=== PATIENT | female | born 1985 | race African-American/Black ===

== ENCOUNTER 2017-08-17 20:00 | Emergency (ER) | payer MEDICARE, OTHER ==
[~2017-08-17] VITALS: Ht 165.1 cm; Wt 59.0 kg
[~2017-08-17 20:00] MED LIST: ARIP10TA15 PO
[2017-08-17 20:43] VITALS: BP 122/76
[2017-08-17 21:06] LABS: APPEARANCE,URINE CLEAR (CLEAR); BILIRUBIN,URINE NEGATIVE (NEGATIVE); BLOOD, URINE NEGATIVE Ery/uL (NEGATIVE); COLOR,URINE YELLOW (YELLOW); KETONES,URINE NEGATIVE (NEGATIVE); LEUKOCYTE ESTERASE ,URINE NEGATIVE (NEGATIVE); NITRITE, URINE NEGATIVE (NEGATIVE); PROTEIN,URINE 2+ mg/dl (NEGATIVE); UGLUCOSE NEGATIVE (NEGATIVE); UROBILINOGEN,URINE 0.2 EU/dL (0.2)
[2017-08-17 21:21] LABS: BACTERIA,URINE Rare /HPF (None Seen); RBC,URINE 0-2 /HPF (0-2); WBC,URINE 0-2 /HPF (0-3)
[2017-08-17 21:22] LABS: MUCUS,URINE Many /LPF (None Seen); SQUAMOUS EPITHELIAL CELL,UR 0-2 /HPF (None Seen)
== END 2017-08-17 22:04 | disposition home or self-care (01) ==
LOC: ER 20:02
DX: S39.012A Strain of muscle, fascia and tendon of lower back, initial encounter (principal); J06.9 Acute upper respiratory infection, unspecified; F17.200 Nicotine dependence, unspecified, uncomplicated; F31.9 Bipolar disorder, unspecified; X58.XXXA Exposure to other specified factors, initial encounter; Y93.89 Activity, other specified; Y92.89 Other specified places as the place of occurrence of the external cause; Y99.8 Other external cause status
CPT/HCPCS: 81001; 84703; 99283; 99406; A4606; 81000-TC; Z7610

== ENCOUNTER 2018-11-20 14:33 | Emergency (ER) | payer MEDICARE, OTHER ==
[~2018-11-20] VITALS: Ht 165.1 cm; Wt 59.0 kg
[~2018-11-20 14:33] MED LIST changes: -ARIP10TA15 PO; +ARIP10TA9 PO
--- NOTE | 2018-11-20 14:33 | NUR ---
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
--- NOTE | 2018-11-20 14:48 | NUR ---
PT STATES 2 LIVE BIRTHS AND MULTIPLE ABORTIONS.
--- NOTE | 2018-11-20 15:11 | NUR ---
TECH AT BEDSIDE FOR PELVIC US.
--- NOTE | 2018-11-20 15:11 | NUR ---
LABS DRAWNED AND SENT TO LAB.
[2018-11-20 15:17] LABS: BASOPHILS % (AUTO) 0.3 % (0.0-2.0); EOSINOPHILS % (AUTO) 0.7 % (0.0-6.0); HEMATOCRIT 28 % (33-45); HEMOGLOBIN 9.3 g/dL (11.5-14.8); LYMPHOCYTES # (AUTO) 0.9 /CMM (0.8-4.8); LYMPHOCYTES % (AUTO) 21.1 % (20.0-44.0); MEAN CORPUSCULAR HGB CONC 33 g/dl (31.0-36.0); MEAN CORPUSCULAR VOLUME 86 fL (82-100); MONOCYTES # (AUTO) 0.2 /CMM (0.1-1.30); MONOCYTES % (AUTO) 5.6 % (2.0-12.0); NEUTROPHILS % (AUTO) 72.3 % (43.0-81.0); PLATELET COUNT (AUTO) 237 /CMM (150-450); RED BLOOD CELL COUNT(AUTO) 3.26 MIL/uL (4.0-5.2); WHITE BLOOD COUNT (AUTO) 4.1 K/uL (4.3-11.0)
[2018-11-20 15:25] LABS: CALCIUM, SERUM 8.6 mg/dL (8.5-10.1); CREATININE 0.7 mg/dL (0.6-1.3); POTASSIUM 3.4 mmol/L (3.5-5.1)
--- NOTE | 2018-11-20 15:25 | NUR ---
URINE SPECIMEN COLLECTED AND SENT TO LAB.
[2018-11-20 15:48] LABS: APPEARANCE,URINE Clear (CLEAR); BILIRUBIN,URINE Negative (NEGATIVE); BLOOD, URINE Trace-lysed Ery/uL (NEGATIVE); COLOR,URINE Yellow (YELLOW); KETONES,URINE Negative (NEGATIVE); LEUKOCYTE ESTERASE ,URINE Negative (NEGATIVE); NITRITE, URINE Negative (NEGATIVE); PROTEIN,URINE Negative (NEGATIVE); UGLUCOSE Negative (NEGATIVE); UROBILINOGEN,URINE 0.2 EU/dL (0.2)
[2018-11-20 16:06] LABS: BACTERIA,URINE None seen /HPF (None Seen); SQUAMOUS EPITHELIAL CELL,UR Few /HPF (None Seen); WBC,URINE 0-2 /HPF (0-3)
--- NOTE | 2018-11-20 16:07 | NUR ---
Patient discharged to home in stable condition. Written and verbal after care instructions given. Patient verbalizes understanding of instruction.
[2018-11-20 16:08] VITALS: BP 121/68
== END 2018-11-20 16:09 | disposition home or self-care (01) ==
LOC: ER 14:39
DX: O20.0 Threatened abortion (principal); J45.909 Unspecified asthma, uncomplicated; F31.9 Bipolar disorder, unspecified; F20.9 Schizophrenia, unspecified
CPT/HCPCS: 36415; 76856-TC; 80048-TC; 81000-TC; 84702-TC; 85025-TC; 85730-TC

== ENCOUNTER 2019-03-11 14:58 | Emergency (ER) | payer MEDICARE, OTHER ==
[~2019-03-11] VITALS: Ht 165.1 cm; Wt 68.9 kg
--- NOTE | 2019-03-11 15:19 | NUR ---
PT PRESENTED TO THE ER WITH A C/O " PAIN"/ABD PAIN DURING . 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 PT STATED THAT SHE JUST PICKED UP HER PILLS. PT AMBULATED TO ROOM #16 WITH A STEADY GAIT. PT WAS PLACED ON THE MONITOR AND COTNINUOUS PULSE OX.
[2019-03-11] MEDS ORDERED: ACETAMINOPHEN ES 500 MG TABLET PO ONE (15:30)
[2019-03-11] MEDS ORDERED: IV NS 0.9% 1,000 ML BAG IV ONE (15:30)
--- NOTE | 2019-03-11 15:30 | NUR ---
IV STARTED IN RAC. LEE, MATERIAL DAMAGE APPRAISER IS AT THE BEDSIDE.
[2019-03-11] MEDS ORDERED: ACETAMINOPHEN ES 500 MG TABLET ONE (15:34)
--- NOTE | 2019-03-11 15:35 | NUR ---
BLOOD WAS DRAWN AND SENT TO LAB. IV FLUID STARTED ORDERED.
--- NOTE | 2019-03-11 15:35 | NUR ---
ASA US TECH, IS AT THE BEDSIDE.
[2019-03-11 15:37] LABS: BASOPHILS % (AUTO) 0.3 % (0.0-2.0); EOSINOPHILS % (AUTO) 1.4 % (0.0-6.0); HEMATOCRIT 25 % (33-45); HEMOGLOBIN 8.5 g/dL (11.5-14.8); LYMPHOCYTES # (AUTO) 0.9 /CMM (0.8-4.8); LYMPHOCYTES % (AUTO) 16.6 % (20.0-44.0); MEAN CORPUSCULAR HGB CONC 34 g/dl (31.0-36.0); MEAN CORPUSCULAR VOLUME 86 fL (82-100); MONOCYTES # (AUTO) 0.3 /CMM (0.1-1.30); MONOCYTES % (AUTO) 5.6 % (2.0-12.0); NEUTROPHILS # (AUTO) 4.1 /CMM (1.8-8.9); NEUTROPHILS % (AUTO) 76.1 % (43.0-81.0); PLATELET COUNT (AUTO) 226 /CMM (150-450); RED BLOOD CELL COUNT(AUTO) 2.92 MIL/uL (4.0-5.2); WHITE BLOOD COUNT (AUTO) 5.4 K/uL (4.3-11.0)
[2019-03-11 15:44] LABS: CREATININE 0.6 mg/dL (0.6-1.3); POTASSIUM 3.3 mmol/L (3.5-5.1)
[2019-03-11 16:11] LABS: ALBUMIN 2.6 g/dL (3.4-5.0); BILIRUBIN,TOTAL 0.3 mg/dL (0.2-1.0)
--- NOTE | 2019-03-11 16:17 | NUR ---
PT AMBULATED TO THE BATHROOM WITH A SLOW STEADY GIAT. URINE SAMPLE WAS OBTAINED AND SENT TO LAB. NOTIFIED.
[2019-03-11 16:23] LABS: APPEARANCE,URINE Clear (CLEAR); BILIRUBIN,URINE Negative (NEGATIVE); BLOOD, URINE Negative Ery/uL (NEGATIVE); COLOR,URINE Yellow (YELLOW); KETONES,URINE Negative (NEGATIVE); LEUKOCYTE ESTERASE ,URINE Negative (NEGATIVE); NITRITE, URINE Negative (NEGATIVE); PROTEIN,URINE Negative (NEGATIVE); UGLUCOSE Negative (NEGATIVE); UROBILINOGEN,URINE 0.2 EU/dL (0.2)
[2019-03-11 16:49] VITALS: BP 118/72
--- NOTE | 2019-03-11 16:54 | NUR ---
IV removed. Catheter intact and site benign. Pressure and 4x4 applied to site. No bleeding noted. Patient discharged to home in stable condition. Written and verbal after care instructions given. Patient verbalizes understanding of instruction. PT TOLD TO F/U WITH SUPERVISOR SLATE SPLITTING. VSS. NAD NOTED. PT AMBULATED OUT WITH A STEADY GAIT.
== END 2019-03-11 16:55 | disposition home or self-care (01) ==
LOC: ER 14:58
DX: O26.892 Other specified pregnancy related conditions, second trimester (principal); R10.84 Generalized abdominal pain; R10.2 Pelvic and perineal pain; O99.512 Diseases of the respiratory system complicating pregnancy, second trimester; J45.909 Unspecified asthma, uncomplicated; O99.342 Other mental disorders complicating pregnancy, second trimester; F31.9 Bipolar disorder, unspecified; F20.9 Schizophrenia, unspecified; Z59.0 Homelessness
CPT/HCPCS: 36415; 76805; 80048; 80076; 81001; 84702; 85025; 86850; 99284; J7030; 81000-TC

== ENCOUNTER 2023-02-06 19:48 | Emergency (ER) | payer MEDICARE, OTHER ==
[~2023-02-06] VITALS: Ht 165.1 cm; Wt 78.5 kg
--- NOTE | 2023-02-06 21:47 | NUR ---
BIBS FOR VAGINAL BLEEDING, STATES APPROX 8 WKS (LMP 12/14/22). [id number]. PT AAOX4, IN NAD. VITALS CHECKED. PLACED COMFORTABLY IN BED.
--- NOTE | 2023-02-06 21:48 | NUR ---
URINE COLLECTED AND SENT TO LAB
[2023-02-06 22:21] LABS: BASOPHILS % (AUTO) 0.2 % (0.0-2.0); EOSINOPHILS % (AUTO) 0.7 % (0.0-6.0); HEMATOCRIT 35 % (33-45); HEMOGLOBIN 11.5 g/dL (11.5-14.8); MEAN CORPUSCULAR HGB CONC 33 g/dl (31.0-36.0); MEAN CORPUSCULAR VOLUME 85 fL (82-100); MONOCYTES # (AUTO) 0.4 K/uL (0.1-1.30); MONOCYTES % (AUTO) 4.6 % (2.0-12.0); NEUTROPHILS % (AUTO) 73.5 % (43.0-81.0); PLATELET COUNT (AUTO) 326 K/uL (150-450); RED BLOOD CELL COUNT(AUTO) 4.11 MIL/uL (4.0-5.2); WHITE BLOOD COUNT (AUTO) 9.5 K/uL (4.3-11.0)
[2023-02-06 22:39] LABS: CALCIUM, SERUM 9.6 mg/dL (8.5-10.1); CREATININE 0.7 mg/dL (0.6-1.3); POTASSIUM 3.9 mmol/L (3.5-5.1)
[2023-02-06 22:50] LABS: BILIRUBIN,URINE NEGATIVE (NEGATIVE); COLOR,URINE YELLOW (YELLOW); LEUKOCYTE ESTERASE ,URINE NEGATIVE (NEGATIVE); NITRITE, URINE NEGATIVE (NEGATIVE); PROTEIN,URINE TRACE mg/dl (NEGATIVE); UGLUCOSE NEGATIVE (NEGATIVE)
[2023-02-06 22:59] LABS: BACTERIA,URINE Rare /HPF (None Seen); SQUAMOUS EPITHELIAL CELL,UR Few /HPF (None Seen); WBC,URINE 0-2 /HPF (0-3)
[2023-02-06 23:06] LABS: ALBUMIN 3.5 g/dL (3.4-5.0); BILIRUBIN,DIRECT 0.1 mg/dL (0.0-0.2); BILIRUBIN,TOTAL 0.3 mg/dL (0.2-1.0); TOTAL PROTEIN, SERUM 7.9 g/dL (6.4-8.2)
--- NOTE | 2023-02-06 23:51 | NUR ---
Patient discharged to home in stable condition. Written and verbal after care instructions given. Patient verbalizes understanding of instruction.
[2023-02-07 00:16] VITALS: BP 122/70
== END 2023-02-07 00:17 | disposition home or self-care (01) ==
LOC: ER 20:01
DX: O20.0 Threatened abortion (principal); J45.909 Unspecified asthma, uncomplicated; F31.9 Bipolar disorder, unspecified; F20.9 Schizophrenia, unspecified; Z59.00 Homelessness unspecified; Z79.899 Other long term (current) drug therapy; Z3A.09 9 weeks gestation of pregnancy
CPT/HCPCS: 36415; 76856-TC; 80048-TC; 80076-TC; 81001; 84702-TC; 84703-TC; 85025-TC; 85730-TC